=== PATIENT | female | born 1980 | race American Indian/Alaskan Native ===

== ENCOUNTER 2017-11-28 19:35 | Emergency (ER) | payer SELFPAY ==
[2017-11-28 19:56] VITALS: BP 140/87
[2017-11-29] MEDS ORDERED: DELTASONE PO ONE (00:06)
[2017-11-29] MEDS ORDERED: MUCINEX ER PO ONE (00:06)
[2017-11-29] MEDS ORDERED: MOTRIN PO ONE (00:06)
--- NOTE | 2017-11-29 00:06 | Emergency Department Report ---
Minor Respiratory - HPI Chief Complaint: Upper Respiratory Infection Stated Complaint: BODY ACHES Time Seen by Provider: 11/29/17 00:05 Duration: 4 Days Severity: moderate Minor Respiratory: Yes Able to Tolerate Fluids, Yes Cough, Yes Fever (resolved now), No Rhinorrhea, No Sore Throat, No Ear Pain, No Sick Contacts, No Hemoptysis, No Chest Pain, No Shortness of Breath ED Review of Systems ROS: Stated complaint: BODY ACHES Other details as noted in HPI Constitutional: denies: chills, fever Eyes: denies: eye pain, eye discharge, vision change ENT: denies: ear pain, throat pain Respiratory: denies: cough, shortness of breath, wheezing Cardiovascular: denies: chest pain, palpitations Endocrine: no symptoms reported Gastrointestinal: denies: abdominal pain, nausea, diarrhea Genitourinary: denies: urgency, dysuria, discharge Musculoskeletal: denies: back pain, joint swelling, arthralgia Skin: denies: rash, lesions Neurological: denies: headache, weakness, paresthesias Psychiatric: denies: anxiety, depression Hematological/Lymphatic: denies: easy bleeding, easy bruising ED Past Medical Hx - Past Medical History Hx Asthma: Yes - Social History Smoking Status: Current Every Day Smoker Substance Use Type: Alcohol - Medications Home Medications: Home Medications Medication Instructions Recorded Confirmed Last Taken Type Sulfamethoxazole/Trimethoprim 1 each PO BID #14 tablet 10/07/15 Unknown Rx [Bactrim DS TAB] medroxyPROGESTERone ACETATE 10 mg PO QDAY #10 tablet 10/07/15 Unknown Rx [Provera] Benzonatate [Tessalon Perles] 100 mg PO Q8HR #21 capsule 11/29/17 Unknown Rx Pseudoephedrine/Acetaminophen 1 each PO Q8H #24 tablet 11/29/17 Unknown Rx [Nexafed Sinus Press-Pain Tab] guaiFENesin ER [Mucinex ER] 600 mg PO Q12H #14 tablet.er 11/29/17 Unknown Rx Minor Respiratory Exam - Exam General: Vital signs noted. No distress. Alert and acting appropriately. HEENT: Yes Moist Mucous Membranes, No Pharyngeal Erythema, No Pharyngeal Exudates, No Rhinorrhea, No Conjuctival Injection, No Frontal Tenderness, No Maxillary Tenderness Ear: Neither TM Bulge, Neither TM Erythema, Neither EAC Pain, Neither EAC Discharge Neck: Yes Supple, No Adenopathy Lungs: Yes Good Air Exchange, No Wheezes, No Ronchi, No Stridor, No Cough, No Labored Respirations, No Retractions, No Use of Accessory Muscles, No Other Abnormal Lung Sounds Heart: Yes Regular, No Murmur Abdomen: Yes Normal Bowel Sounds, No Tenderness, No Peritoneal Signs Skin: No Rash, No Edema Neurologic: Alert and oriented, no deficits. Musculoskeletal: Unremarkable. ED Course Vital Signs 11/28/17 19:54 Temperature 97.9 F Pulse Rate 72 Respiratory 18 Rate Blood Pressure 140/87 O2 Sat by Pulse 99 Oximetry ED Medical Decision Making - Medical Decision Making 37-year-old male presents with flulike symptoms. Fever resolved no fever during the ED stay. Discussed with patient symptomatic relief with [id number] medications. Discussed continue Tylenol and Motrin as needed for fever and pain. Discussed increase fluids and diet intake. Discussed rest much needed. Discussed daily vitamin C for immune booster. Discussed follow-up with digital engineer in 3-5 days. Patient's pt verbally states she understands and will comply the following instructions and follow-up Vital signs stable. Patient is in no acute distress Critical care attestation.: If time is entered above; I have spent that time in minutes in the direct care of this critically ill patient, excluding procedure time. ED Disposition Clinical Impression: Viral syndrome Upper respiratory infection Qualifiers: URI type: unspecified URI Qualified Code(s): J06.9 - Acute upper respiratory infection, unspecified Disposition: -01 TO HOME OR SELFCARE Is pt being admited?: No Does the pt Need Aspirin: No Condition: Stable Instructions: Upper Respiratory Infection (ED), Viral Syndrome (ED), Cold Symptoms (ED) Additional Instructions: Make sure to follow up with the primary care physician as discussed. Take all your medications as you've been prescribed. If you have any worsening symptoms or develop new symptoms please return to ED immediately. Prescriptions: Benzonatate [Tessalon Perles] 100 mg PO Q8HR #21 capsule guaiFENesin ER [Mucinex ER] 600 mg PO Q12H #14 tablet.er Pseudoephedrine/Acetaminophen [Nexafed Sinus Press-Pain Tab] 1 each PO Q8H #24 tablet Referrals: PRIMARY CARE, [Primary Care Provider] - 3-5 Days [facility] [Outside] - 3-5 Days [facility] [Outside] - 3-5 Days Forms: Accompanied Note, Work/School Release Form(ED) Time of Disposition: 01:00
== END 2017-11-29 02:00 | disposition home or self-care (01) ==
LOC: ED 19:35
DX: B34.9 Viral infection, unspecified (principal); J06.9 Acute upper respiratory infection, unspecified; F17.200 Nicotine dependence, unspecified, uncomplicated
CPT/HCPCS: 87400; 99282; J7512

== ENCOUNTER 2019-01-09 11:56 | Emergency (ER) | payer BC ==
[2019-01-09 12:07] VITALS: BP 174/82
--- NOTE | 2019-01-09 12:07 | Emergency Department Report ---
Blank Doc - Documentation Documentation: This is a 38-year-old female that presents with bilateral feet pain with radia ting to lower back area. Denies any calf pain. Denies any trauma or injuries. This initial assessment/diagnostic orders/clinical plan/treatment(s) is/are subject to change based on patient's health status, clinical progression and re- assessment by fellow clinical providers in the ED. Further treatment and workup at subsequent clinical providers discretion. Patient/guardians urged not to elope from the ED as their condition may be serious if not clinically assessed and managed. Initial orders include: 1- Patient sent to [facility] for further evaluation and treatment
[2019-01-09] MEDS ORDERED: TORADOL IM ONE (14:59)
--- NOTE | 2019-01-09 15:04 | Emergency Department Report ---
ED Back Pain/Injury HPI - General Chief Complaint: Extremity Problem,Nontraumatic Stated Complaint: R LEF/FOOT PAIN Time Seen by Provider: 01/09/19 12:05 Source: patient Limitations: No Limitations - History of Present Illness Initial Comments: Ms. Oneill is a 38 yo female who presents with right leg pain radiating by right hip for the past 2 weeks. Has bilateral numbness. Does heavy lifting on job. Has moderately severe pain with improvement with ibuprofen. -: Gradual, week(s) (2) Similar Symptoms Previously: No Place: home, work Severity: moderate Quality: burning Consistency: constant Worsens With: movement - Related Data Previous Rx's Medication Instructions Recorded Last Taken Type Sulfamethoxazole/Trimethoprim 1 each PO BID #14 tablet 10/07/15 Unknown Rx [Bactrim DS TAB] medroxyPROGESTERone ACETATE 10 mg PO QDAY #10 tablet 10/07/15 Unknown Rx [Provera] Benzonatate [Tessalon Perles] 100 mg PO Q8HR #21 capsule 11/29/17 Unknown Rx Pseudoephedrine/Acetaminophen 1 each PO Q8H #24 tablet 11/29/17 Unknown Rx [Nexafed Sinus Press-Pain Tab] guaiFENesin ER [Mucinex ER] 600 mg PO Q12H #14 tablet.er 11/29/17 Unknown Rx Cyclobenzaprine [Flexeril] 10 mg PO TID PRN #20 tablet 01/09/19 Unknown Rx Ibuprofen 800 mg PO TID 5 Days #15 tablet 01/09/19 Unknown Rx Allergies Allergy/AdvReac Type Severity Reaction Status Date / Time No Known Allergies Allergy Verified 11/28/17 19:54 ED Review of Systems ROS: Stated complaint: R LEF/FOOT PAIN Other details as noted in HPI Comment: All other systems reviewed and negative Constitutional: denies: fever Eyes: denies: eye discharge Respiratory: denies: cough Cardiovascular: denies: chest pain ED Past Medical Hx - Past Medical History Previous Medical History?: No Hx Asthma: Yes - Surgical History Past Surgical History?: No - Social History Smoking Status: Never Smoker Substance Use Type: None - Medications Home Medications: Home Medications Medication Instructions Recorded Confirmed Last Taken Type Sulfamethoxazole/Trimethoprim 1 each PO BID #14 tablet 10/07/15 Unknown Rx [Bactrim DS TAB] medroxyPROGESTERone ACETATE 10 mg PO QDAY #10 tablet 10/07/15 Unknown Rx [Provera] Benzonatate [Tessalon Perles] 100 mg PO Q8HR #21 capsule 11/29/17 Unknown Rx Pseudoephedrine/Acetaminophen 1 each PO Q8H #24 tablet 11/29/17 Unknown Rx [Nexafed Sinus Press-Pain Tab] guaiFENesin ER [Mucinex ER] 600 mg PO Q12H #14 tablet.er 11/29/17 Unknown Rx Cyclobenzaprine [Flexeril] 10 mg PO TID PRN #20 tablet 01/09/19 Unknown Rx Ibuprofen 800 mg PO TID 5 Days #15 tablet 01/09/19 Unknown Rx ED Physical Exam - General Limitations: No Limitations General appearance: alert, in no apparent distress - Head Head exam: Present: atraumatic, normocephalic - Eye Eye exam: Present: normal appearance - ENT ENT exam: Present: mucous membranes moist - Neck Neck exam: Present: normal inspection - Respiratory Respiratory exam: Present: normal lung sounds bilaterally. Absent: respiratory distress, wheezes, rales, rhonchi - Cardiovascular Cardiovascular Exam: Present: regular rate, normal rhythm, normal heart sounds. Absent: systolic murmur, diastolic murmur, rubs, gallop - GI/Abdominal GI/Abdominal exam: Present: soft, normal bowel sounds. Absent: distended, tenderness, guarding, rebound - Extremities Exam Extremities exam: Present: normal inspection - Back Exam Back exam: Present: normal inspection, full ROM. Absent: tenderness, CVA tenderness (R), CVA tenderness (L) - Neurological Exam Neurological exam: Present: alert, oriented X3 - Psychiatric Psychiatric exam: Present: normal affect, normal mood - Skin Skin exam: Present: warm, dry, intact, normal color. Absent: rash ED Course Vital Signs 01/09/19 12:06 Temperature 97.7 F Pulse Rate 75 Respiratory 18 Rate Blood Pressure 174/82 O2 Sat by Pulse 100 Oximetry ED Medical Decision Making - Medical Decision Making Ms. Oneill presents with symptoms of sciatica Rx: ibuprofen/flexeril referred to orthopedic surgeon Critical care attestation.: If time is entered above; I have spent that time in minutes in the direct care of this critically ill patient, excluding procedure time. ED Disposition Clinical Impression: Sciatica Disposition: - TO HOME OR SELFCARE Is pt being admited?: No Does the pt Need Aspirin: No Condition: Stable Instructions: Lumbar Radiculopathy (ED) Prescriptions: Cyclobenzaprine [Flexeril] 10 mg PO TID PRN #20 tablet PRN Reason: Muscle Spasm Ibuprofen 800 mg PO TID 5 Days #15 tablet Referrals: JASEN GR MD [Staff Physician] - 3-5 Days
== END 2019-01-09 15:09 | disposition home or self-care (01) ==
LOC: ED 11:56
DX: M54.31 Sciatica, right side (principal); J45.909 Unspecified asthma, uncomplicated
CPT/HCPCS: 96372; 99282; J1885